=== PATIENT | male | born 1990 ===

== ENCOUNTER 2017-06-25 10:25 | Inpatient (IN) | payer SELFPAY ==
[2017-06-25 10:34] VITALS: BMI 19.1
--- NOTE | 2017-06-25 11:02 | C.PDOC ---
History Of Present Illness 26 year old male with no PMHx presents to the ER with a complaint of abdominal pain, nausea, weight loss, fatigue and body aches for the past 15 days, associated with pale stools. Notes his friends noticed his eyes yellow. Patient reports he recently came from [facility] 20 days ago. Denies fever, chest pain, sob, blood in stool, bruising, tylenol use, headache, or drug/ETOH abuse. Time Seen by Provider: 06/25/17 10:45 Chief Complaint (Nursing): Abdominal Pain History Per: Patient History/Exam Limitations: language barrier Onset/Duration Of Symptoms: Days Current Symptoms Are (Timing): Still Present Context: Travel (Recently came from [facility]) Location Of Pain/Discomfort: RUQ, LUQ Radiation Of Pain To:: None Quality Of Discomfort: Unable To Describe Associated Symptoms: Nausea, Other (Weight loss, body aches). denies: Fever, Diarrhea Exacerbating Factors: None Alleviating Factors: None Recent travel outside of the [place]: No Past Medical History Reviewed: Historical Data, Nursing Documentation, Vital Signs Vital Signs: Last Vital Signs Temp 98.7 F 06/25/17 12:00 Pulse 69 06/25/17 12:00 Resp 18 06/25/17 12:00 BP 120/70 06/25/17 12:00 Pulse Ox 97 06/25/17 17:29 - Medical History PMH: No Chronic Diseases Surgical History: No Surg Hx Family History: States: Unknown Family Hx - Social History Hx Alcohol Use: No Hx Substance Use: Yes - Immunization History Hx Tetanus Toxoid Vaccination: No Hx Influenza Vaccination: Yes (2017) Hx Pneumococcal Vaccination: No Review Of Systems Constitutional: Positive for: Weight loss. Negative for: Fever Gastrointestinal: Positive for: Nausea, Abdominal Pain, Other (Pale stools). Negative for: Diarrhea Musculoskeletal: Positive for: Other (Body aches) Neurological: Negative for: Headache Physical Exam - Physical Exam Appears: Non-toxic, No Acute Distress Skin: Warm, Dry, Jaundice Head: Atraumatic, Normacephalic Eye(s): bilateral: PERRL, EOMI, Scleral Icterus Nose: Normal Oral Mucosa: Moist Neck: Normal, Supple Chest: Symmetrical, No Tenderness Cardiovascular: Rhythm Regular Respiratory: Normal Breath Sounds, No Rales, No Rhonchi, No Wheezing Gastrointestinal/Abdominal: Soft, Tenderness (Upper quadrants), No Guarding, No Rebound Back: Normal Inspection Neurological/Psych: Oriented x3, Normal Speech, Other (No focal deficits) ED Course And Treatment - Laboratory Results Result Diagrams: 06/25/17 11:14 06/25/17 11:14 O2 Sat by Pulse Oximetry: 97 (Room air) Pulse Ox Interpretation: Normal - CT Scan/US Abdominal US Other Rad Studies (CT/US): Read By Radiologist, Radiology Report Reviewed CT/US Interpretation: HISTORY: pain. COMPARISON: None available. TECHNIQUE: Sonographic evaluation of the abdomen. FINDINGS: LIVER: Measures 15.1 cm in sagittal dimension and appears unremarkable. No focal hepatic mass identified. The main portal vein appears patent with normal directional flow. No intrahepatic bile duct dilatation. GALLBLADDER: Contracted gallbladder state limits evaluation. No gallstones. No gallbladder wall thickening. Negative sonographic Tay's sign as assessed by the sewing department supervisor. COMMON BILE DUCT: Measures 4 mm. PANCREAS: Not well visualized. RIGHT KIDNEY: Measures 10.6 x 4.3 x 4.8cm. No obstructing calculus or hydronephrosis identified. LEFT KIDNEY: Measures 10.9 x 6.3 x 6.0cm. No obstructing calculus or hydronephrosis identified. SPLEEN: Measures approximately 9.6 cm. AORTA: Limited views appear unremarkable. IVC: Limited views appear unremarkable. OTHER FINDINGS: None. IMPRESSION: Contracted gallbladder state limits evaluation. No acute findings identified. Progress Note: Blood work, urinalysis, and abdominal US ordered. Case discussed with hospitalist, agreed upon admission. Disposition - Disposition Disposition: HOSPITALIZED Disposition Time: 12:00 Condition: STABLE - Clinical Impression Clinical Impression: Hepatitis B, Jaundice, Abnormal LFTs, Abdominal pain - Scribe Statement The provider has reviewed the documentation as recorded by the Scribtabitha Beasley All medical record entries made by the Scribe were at my direction and personally dictated by me. I have reviewed the chart and agree that the record accurately reflects my personal performance of the history, physical exam, medical decision making, and the department course for this patient. I have also personally directed, reviewed, and agree with the discharge instructions and disposition.
[2017-06-25 11:18] LABS: BASO # 0.1 K/uL (0.0-0.2); BASO % 0.9 % (0.0-2.0); EOS # 0.4 K/uL (0.0-0.7); EOS % 4.4 % (0.0-4.0); HEMATOCRIT 44.5 % (35.0-51.0); LYMPH # 2.2 K/uL (1.0-4.3); LYMPH % 26.3 % (20.0-40.0); MEAN CELL VOLUME 93.6 fL (80.0-94.0); MEAN CORPUSCULAR HEMOGLOBIN 31.8 pg (27.0-31.0); MEAN CORPUSCULAR HGB CONC 33.9 g/dL (33.0-37.0); MEAN PLATELET VOLUME 8.4 fL (7.2-11.7); MONO # 1.5 K/uL (0.0-0.8); MONO % 17.7 % (0.0-10.0); NRBC % 0.1 % (0.0-2.0); RED CELL DISTRIBUTION WIDTH 13.9 % (11.5-14.5); WHITE BLOOD COUNT 8.5 K/uL (4.8-10.8)
[2017-06-25 11:25] LABS: RBC URINE 1 /hpf (0-3); URINE BILIRUBIN 2+ (NEGATIVE); URINE BLOOD NEGATIVE (NEGATIVE); URINE COLOR Amber (YELLOW); URINE GLUCOSE (UA) NORMAL (Normal); URINE KETONE NEGATIVE (NEGATIVE); URINE LEUKOCYTE ESTERASE NEG Leu/uL (Negative); URINE PROTEIN NEGATIVE (NEGATIVE); WBC URINE 3 /hpf (0-5)
[2017-06-25 11:36] LABS: ALCOHOL SERUM < 10 mg/dl (0-10); BILIRUBIN,TOTAL 14.1 mg/dL (0.2-1.3)
--- NOTE | 2017-06-25 11:50 | US ---
HISTORY: pain COMPARISON: None available TECHNIQUE: Sonographic evaluation of the abdomen. FINDINGS: LIVER: Measures 15.1 cm in sagittal dimension and appears unremarkable. No focal hepatic mass identified. The main portal vein appears patent with normal directional flow. No intrahepatic bile duct dilatation. GALLBLADDER: Contracted gallbladder state limits evaluation. No gallstones. No gallbladder wall thickening. Negative sonographic Tay's sign as assessed by the director of institutional giving. COMMON BILE DUCT: Measures 4 mm. PANCREAS: Not well visualized. RIGHT KIDNEY: Measures 10.6 x 4.3 x 4.8cm. No obstructing calculus or hydronephrosis identified. LEFT KIDNEY: Measures 10.9 x 6.3 x 6.0cm. No obstructing calculus or hydronephrosis identified. SPLEEN: Measures approximately 9.6 cm. AORTA: Limited views appear unremarkable. IVC: Limited views appear unremarkable. OTHER FINDINGS: None. IMPRESSION: Contracted gallbladder state limits evaluation. No acute findings identified.
[2017-06-25 11:54] LABS: ALB/GLOB RATIO 0.9 (1.0-2.1); ALKALINE PHOSPHATASE 215 U/L (38-126); BILIRUBIN,DIRECT 12.4 mg/dL (0.0-0.4); BILIRUBIN,TOTAL 14.3 mg/dL (0.2-1.3); BLOOD UREA NITROGEN 8 mg/dL (9-20); CALCIUM 8.2 mg/dl (8.6-10.4); CARBON DIOXIDE 26 mmol/L (22-30); CHLORIDE 99 mmol/L (98-107); GFR AFRICAN-AMERICAN > 60; GLUCOSE,RANDOM 84 mg/dL (75-110); SODIUM 133 mmol/L (132-148); TOTAL PROTEIN 7.7 g/dL (6.3-8.3)
[2017-06-25 12:01] LABS: AST/SGOT 2182 U/L (17-59)
[2017-06-25 12:03] LABS: ALT/SGPT 3913 U/L (21-72)
[2017-06-25] MEDS ORDERED: Iohexol 240 (50 ml) PO STA (13:20)
[2017-06-25] MEDS ORDERED: Iohexol 240 (50 ml) ONE (13:37)
[2017-06-25 13:58] LABS: HEP B SURFACE AG CONF CONFIRMED POSITIVE
--- NOTE | 2017-06-25 14:07 | CP.PCM.HP ---
<Berny Jerry - Last Filed: 06/25/17 18:27> Meds Allergies/Adverse Reactions: Allergies Allergy/AdvReac Type Severity Reaction Status Date / Time No Known Allergies Allergy Verified 06/25/17 10:33 Results - Vital Signs Recent Vital Signs: Last Vital Signs Temp 98.7 F 06/25/17 12:00 Pulse 69 06/25/17 12:00 Resp 18 06/25/17 12:00 BP 120/70 06/25/17 12:00 Pulse Ox 97 06/25/17 17:33 - Labs Result Diagrams: 06/25/17 11:14 06/25/17 11:14 Labs: Laboratory Results - last 24 hr 06/25/17 06/25/17 06/25/17 11:14 11:14 11:14 WBC 8.5 RBC 4.76 Hgb 15.1 Hct 44.5 MCV 93.6 MCH 31.8 H MCHC 33.9 RDW 13.9 Plt Count 254 MPV 8.4 Neut % (Auto) 50.7 Lymph % (Auto) 26.3 [place] % (Auto) 17.7 H Eos % (Auto) 4.4 H Baso % (Auto) 0.9 Neut # 4.3 Lymph # 2.2 [place] # 1.5 H Eos # 0.4 Baso # 0.1 PT INR APTT Sodium 133 Potassium 4.0 Chloride 99 Carbon Dioxide 26 Anion Gap 12 BUN 8 L Creatinine 0.5 L Est GFR ( Amer) > 60 Est GFR (Non-Af Amer) > 60 Random Glucose 84 Calcium 8.2 L Total Bilirubin 14.3 H Direct Bilirubin 12.4 H AST 2182 H ALT 3913 H Alkaline Phosphatase 215 H Total Protein 7.7 Albumin 3.7 Globulin 4.0 H Albumin/Globulin Ratio 0.9 L Lipase 152 Urine Color [place] Urine Clarity Clear Urine pH 6.0 Ur Specific [place] 1.018 Urine Protein Negative Urine Glucose (UA) Normal Urine Ketones Negative Urine Blood Negative Urine Nitrate Negative Urine Bilirubin 2+ H Urine Urobilinogen 4.0 Ur Leukocyte Esterase Neg Urine WBC (Auto) 3 Urine RBC (Auto) 1 Acetaminophen Alcohol, Quantitative Hepatitis A IgM Ab Hep Bs Antigen Hep Bs Ag Neutralizatn Hep B Core IgM Ab Hepatitis C Antibody 06/25/17 06/25/17 06/25/17 11:17 11:17 12:15 WBC RBC Hgb Hct MCV MCH MCHC RDW Plt Count MPV Neut % (Auto) Lymph % (Auto) [place] % (Auto) Eos % (Auto) Baso % (Auto) Neut # Lymph # [place] # Eos # Baso # PT INR APTT Sodium Potassium Chloride Carbon Dioxide Anion Gap BUN Creatinine Est GFR ( Amer) Est GFR (Non-Af Amer) Random Glucose Calcium Total Bilirubin 14.1 H Direct Bilirubin AST ALT Alkaline Phosphatase Total Protein Albumin Globulin Albumin/Globulin Ratio Lipase Urine Color Urine Clarity Urine pH Ur Specific [place] Urine Protein Urine Glucose (UA) Urine Ketones Urine Blood Urine Nitrate Urine Bilirubin Urine Urobilinogen Ur Leukocyte Esterase Urine WBC (Auto) Urine RBC (Auto) Acetaminophen < 10.0 L Alcohol, Quantitative < 10 Hepatitis A IgM Ab Negative Hep Bs Antigen Positive Hep Bs Ag Neutralizatn Confirmed positive H Hep B Core IgM Ab Reactive Hepatitis C Antibody Negative 06/25/17 15:23 WBC RBC Hgb Hct MCV MCH MCHC RDW Plt Count MPV Neut % (Auto) Lymph % (Auto) [place] % (Auto) Eos % (Auto) Baso % (Auto) Neut # Lymph # [place] # Eos # Baso # PT 14.3 H INR 1.3 APTT 31 Sodium Potassium Chloride Carbon Dioxide Anion Gap BUN Creatinine Est GFR ( Amer) Est GFR (Non-Af Amer) Random Glucose Calcium Total Bilirubin Direct Bilirubin AST ALT Alkaline Phosphatase Total Protein Albumin Globulin Albumin/Globulin Ratio Lipase Urine Color Urine Clarity Urine pH Ur Specific [place] Urine Protein Urine Glucose (UA) Urine Ketones Urine Blood Urine Nitrate Urine Bilirubin Urine Urobilinogen Ur Leukocyte Esterase Urine WBC (Auto) Urine RBC (Auto) Acetaminophen Alcohol, Quantitative Hepatitis A IgM Ab Hep Bs Antigen Hep Bs Ag Neutralizatn Hep B Core IgM Ab Hepatitis C Antibody Attending/Attestation - Attestation I have personally seen and examined this patient.: Yes I have fully participated in the care of the patient.: Yes I have reviewed all pertinent clinical information: Yes Notes (Text): patient was seen and examined.Got [employer] translation service.Patient was not feeling.He is complaining of abdominal pain for the past 15 days, back pain, and mild pruritus.He denies history of hepatitis,denies drug use,denies <Florecita Dimas - Last Filed: 06/25/17 19:20> History of Present Illness - History of Present Illness History of Present Illness: History and physical for Dr. Jerry Patient presents with abdominal pain for the past 15 days. Patient admits to abdominal pain, back pain, and mild pruritis. Patient admits to general sense of fatigue. Patient states this is the first time he's ever had this before. Patient's relative at bedside in emergency room states patient was born and had to stay in the hospital for five days for ultraviolet light treatment for jaundice. Patient has not had any symptoms of puritis, abdominal pain, nausea, diarrhea, constipation, numbness, tingling, chest pain, shortness of breath. PMH: none PSH: no surgeries Family history: no history of liver disease Social history: patient's last drink was 1 month ago 3 bottles of vodka with 6 friends. Patient is a never smoker, patient denies illicit drugs. Present on Admission - Present on Admission Any Indicators Present on Admission: No History of DVT/PE: No History of Uncontrolled Diabetes: No Urinary Catheter: No Decubitus Ulcer Present: No Past Patient History - Past Social History Smoking Status: Former Smoker - PSYCHIATRIC Hx Substance Use: Yes - SURGICAL HISTORY Hx Surgeries: No - ANESTHESIA Hx Anesthesia: No Physical Exam - Constitutional Appears: Non-toxic - Head Exam Head Exam: NORMAL INSPECTION - Eye Exam Eye Exam: EOMI, Scleral icterus - ENT Exam ENT Exam: Mucous Membranes Moist - Neck Exam Neck exam: Positive for: Full Rom - Respiratory Exam Respiratory Exam: Clear to Auscultation Bilateral. absent: Accessory Muscle Use - Cardiovascular Exam Cardiovascular Exam: REGULAR RHYTHM, +S1, +S2. absent: Bradycardia, Tachycardia - GI/Abdominal Exam GI & Abdominal Exam: Soft, Tenderness - Extremities Exam Extremities exam: Positive for: full ROM. Negative for: pedal edema - Neurological Exam Neurological exam: Alert, Normal Gait, Oriented x3 - Psychiatric Exam Psychiatric exam: Normal Affect, Normal Mood - Skin Skin Exam: Pallor Additional comments: jaundice Results - Vital Signs Recent Vital Signs: Last Vital Signs Temp 98.7 F 06/25/17 12:00 Pulse 69 06/25/17 12:00 Resp 18 06/25/17 12:00 BP 120/70 06/25/17 12:00 Pulse Ox 97 06/25/17 12:37 - Labs Result Diagrams: 06/25/17 11:14 06/25/17 11:14 Labs: Laboratory Results - last 24 hr 06/25/17 06/25/17 06/25/17 11:14 11:14 11:14 WBC 8.5 RBC 4.76 Hgb 15.1 Hct 44.5 MCV 93.6 MCH 31.8 H MCHC 33.9 RDW 13.9 Plt Count 254 MPV 8.4 Neut % (Auto) 50.7 Lymph % (Auto) 26.3 [place] % (Auto) 17.7 H Eos % (Auto) 4.4 H Baso % (Auto) 0.9 Neut # 4.3 Lymph # 2.2 [place] # 1.5 H Eos # 0.4 Baso # 0.1 Sodium 133 Potassium 4.0 Chloride 99 Carbon Dioxide 26 Anion Gap 12 BUN 8 L Creatinine 0.5 L Est GFR ( Amer) > 60 Est GFR (Non-Af Amer) > 60 Random Glucose 84 Calcium 8.2 L Total Bilirubin 14.3 H Direct Bilirubin 12.4 H AST 2182 H ALT 3913 H Alkaline Phosphatase 215 H Total Protein 7.7 Albumin 3.7 Globulin 4.0 H Albumin/Globulin Ratio 0.9 L Lipase 152 Urine Color [place] Urine Clarity Clear Urine pH 6.0 Ur Specific [place] 1.018 Urine Protein Negative Urine Glucose (UA) Normal Urine Ketones Negative Urine Blood Negative Urine Nitrate Negative Urine Bilirubin 2+ H Urine Urobilinogen 4.0 Ur Leukocyte Esterase Neg Urine WBC (Auto) 3 Urine RBC (Auto) 1 Acetaminophen Alcohol, Quantitative Hepatitis A IgM Ab Hep Bs Antigen Hep Bs Ag Neutralizatn Hep B Core IgM Ab Hepatitis C Antibody 06/25/17 06/25/17 06/25/17 11:17 11:17 12:15 WBC RBC Hgb Hct MCV MCH MCHC RDW Plt Count MPV Neut % (Auto) Lymph % (Auto) [place] % (Auto) Eos % (Auto) Baso % (Auto) Neut # Lymph # [place] # Eos # Baso # Sodium Potassium Chloride Carbon Dioxide Anion Gap BUN Creatinine Est GFR ( Amer) Est GFR (Non-Af Amer) Random Glucose Calcium Total Bilirubin 14.1 H Direct Bilirubin AST ALT Alkaline Phosphatase Total Protein Albumin Globulin Albumin/Globulin Ratio Lipase Urine Color Urine Clarity Urine pH Ur Specific [place] Urine Protein Urine Glucose (UA) Urine Ketones Urine Blood Urine Nitrate Urine Bilirubin Urine Urobilinogen Ur Leukocyte Esterase Urine WBC (Auto) Urine RBC (Auto) Acetaminophen < 10.0 L Alcohol, Quantitative < 10 Hepatitis A IgM Ab Negative Hep Bs Antigen Positive Hep Bs Ag Neutralizatn Confirmed positive H Hep B Core IgM Ab Reactive Hepatitis C Antibody Negative Assessment & Plan - Assessment and Plan (Free Text) Assessment: Hepatitis B positive, hyperbilirubinemia, elevated LFTs 06/25 Hep panel: Hep Bs Antigen positive, Hep Bs Ag Neutralization positive, Hep B Core IgM ab reactive 06/25 Abdominal US: negative for any calculus, portal vein patent, gallbladder is contracted, unable to view 06/25 CT Abdomen/Pelvis PO/IV contrast: monitor CMP Prophylaxis: Protonix 20mg QD SCDs pending coag panel, pharmacologic DVT prophylaxis contraindicated fluids: D5w 1/2 NS @80cc/hr Diet: NPO, except medications discussed with Dr. Claritza Dimas DO PGY1 - Date & Time Date: 06/25/17 Time: 14:05 Decision To Admit - Pt Status Changed To: Hospital Disposition Of: Inpatient - Admit Certification Admit to Inpatient:: After my assessment, the patient will require hospitalization for at least two midnights. This is because of the severity of symptoms shown, intensity of services needed, and/or the medical risk in this patient being treated as an outpatient. - InPatient: Physician Admission Certification:: Dr. Jerry - . Bed Request Type: Regular
[2017-06-25] MEDS: Dextrose 5%/0.45% NS 1,000 ML IV SCH (14:51)
--- NOTE | 2017-06-25 15:25 | CP.PCM.CON ---
History of Present Illness - History of Present Illness History of Present Illness: Consdult ordered for GI sserevice for hepatitis. Consult was noticed in computer. My service has not yet been called. Young ,male from [place]- came 3 weeks ago- reports 2 weeks of symptoms: RUQ abdom pain- mild to moderate, body aches, nausea, fever,wt loss., dark urine, yellow eyes , and light stool. Reports tattoos. Denies transfusions, Cp, SOB, meds, herbals, tylenol, alcohol, suplements, hematuria, hemoptuysis. Review of Systems - Constitutional Constitutional: Fatigue, Fever, Weight Loss, Weakness. absent: Chills, Lethargy , Night Sweats, Weight Gain - EENT Nose/Mouth/Throat: absent: Dry Mouth, Dysphagia - Cardiovascular Cardiovascular: absent: Chest Pain, Dyspnea - Respiratory Respiratory: absent: Cough, Hemoptysis, Wheezing - Gastrointestinal Gastrointestinal: Abdominal Pain, Nausea. absent: Diarrhea, Dysphagia, Hematemesis, Hematochezia, Melena, Odynophagia, Vomiting - Genitourinary Genitourinary: absent: Flank Pain, Hematuria - Musculoskeletal Musculoskeletal: Arthralgias, Muscle Cramps - Integumentary Integumentary: Pruritus, Jaundice. absent: Rash - Neurological Neurological: absent: Convulsions Past Patient History - Past Social History Smoking Status: Former Smoker - PSYCHIATRIC Hx Substance Use: Yes - SURGICAL HISTORY Hx Surgeries: No - ANESTHESIA Hx Anesthesia: No Meds Allergies/Adverse Reactions: Allergies Allergy/AdvReac Type Severity Reaction Status Date / Time No Known Allergies Allergy Verified 06/25/17 10:33 - Medications Medications: Current Medications Dextrose/Sodium Chloride (Dextrose 5%/0.45% Ns 1000 Ml) 1,000 mls @ 80 mls/hr IV .[id number] [facility] Last Admin: 06/25/17 14:51 Dose: 80 mls/hr Morphine Sulfate (Morphine) 2 mg IVP Q6H PRN PRN Reason: Pain, moderate (4-7) Pantoprazole Sodium (Protonix Inj) 40 mg IVP DAILY [facility] Physical Exam - Constitutional Appears: Well - Neck Exam Neck exam: Negative for: Tenderness - Respiratory Exam Respiratory Exam: Clear to Auscultation Bilateral - Cardiovascular Exam Cardiovascular Exam: RRR - GI/Abdominal Exam GI & Abdominal Exam: Normal Bowel Sounds, Soft, Tenderness. absent: Distended, Firm, Guarding, Mass, Rebound Additional comments: Mild RUQ tenderness. - Extremities Exam Extremities exam: Negative for: calf tenderness, pedal edema - Neurological Exam Neurological exam: Alert, Oriented x3 Additional comments: No asterixis - Skin Additional comments: + Tattoos Results - Vital Signs Recent Vital Signs: Last Vital Signs Temp 98.7 F 06/25/17 12:00 Pulse 69 06/25/17 12:00 Resp 18 06/25/17 12:00 BP 120/70 06/25/17 12:00 Pulse Ox 97 06/25/17 12:37 - Labs Result Diagrams: 06/25/17 11:14 06/25/17 11:14 Labs: Laboratory Results - last 24 hr 06/25/17 06/25/17 06/25/17 11:14 11:14 11:14 WBC 8.5 RBC 4.76 Hgb 15.1 Hct 44.5 MCV 93.6 MCH 31.8 H MCHC 33.9 RDW 13.9 Plt Count 254 MPV 8.4 Neut % (Auto) 50.7 Lymph % (Auto) 26.3 [place] % (Auto) 17.7 H Eos % (Auto) 4.4 H Baso % (Auto) 0.9 Neut # 4.3 Lymph # 2.2 [place] # 1.5 H Eos # 0.4 Baso # 0.1 Sodium 133 Potassium 4.0 Chloride 99 Carbon Dioxide 26 Anion Gap 12 BUN 8 L Creatinine 0.5 L Est GFR ( Amer) > 60 Est GFR (Non-Af Amer) > 60 Random Glucose 84 Calcium 8.2 L Total Bilirubin 14.3 H Direct Bilirubin 12.4 H AST 2182 H ALT 3913 H Alkaline Phosphatase 215 H Total Protein 7.7 Albumin 3.7 Globulin 4.0 H Albumin/Globulin Ratio 0.9 L Lipase 152 Urine Color [place] Urine Clarity Clear Urine pH 6.0 Ur Specific [place] 1.018 Urine Protein Negative Urine Glucose (UA) Normal Urine Ketones Negative Urine Blood Negative Urine Nitrate Negative Urine Bilirubin 2+ H Urine Urobilinogen 4.0 Ur Leukocyte Esterase Neg Urine WBC (Auto) 3 Urine RBC (Auto) 1 Acetaminophen Alcohol, Quantitative Hepatitis A IgM Ab Hep Bs Antigen Hep Bs Ag Neutralizatn Hep B Core IgM Ab Hepatitis C Antibody 06/25/17 06/25/17 06/25/17 11:17 11:17 12:15 WBC RBC Hgb Hct MCV MCH MCHC RDW Plt Count MPV Neut % (Auto) Lymph % (Auto) [place] % (Auto) Eos % (Auto) Baso % (Auto) Neut # Lymph # [place] # Eos # Baso # Sodium Potassium Chloride Carbon Dioxide Anion Gap BUN Creatinine Est GFR ( Amer) Est GFR (Non-Af Amer) Random Glucose Calcium Total Bilirubin 14.1 H Direct Bilirubin AST ALT Alkaline Phosphatase Total Protein Albumin Globulin Albumin/Globulin Ratio Lipase Urine Color Urine Clarity Urine pH Ur Specific [place] Urine Protein Urine Glucose (UA) Urine Ketones Urine Blood Urine Nitrate Urine Bilirubin Urine Urobilinogen Ur Leukocyte Esterase Urine WBC (Auto) Urine RBC (Auto) Acetaminophen < 10.0 L Alcohol, Quantitative < 10 Hepatitis A IgM Ab Negative Hep Bs Antigen Positive Hep Bs Ag Neutralizatn Confirmed positive H Hep B Core IgM Ab Reactive Hepatitis C Antibody Negative Assessment & Plan (1) Abdominal pain Assessment and Plan: Hepatitis. No GB disease Status: Acute (2) Jaundice Assessment and Plan: C/w acute hepatitis B. REC: Avoid hepatotoxic meds Follow LFTs Check and follow PT/ INR Check NH3 level. Advise contacts Status: Acute (3) Abnormal LFTs Status: Acute (4) Hepatitis B Status: Acute
[2017-06-25] MEDS ORDERED: Iodixanol 320 MG/ML 100 ML BOTTLE IV ONE (15:35)
[2017-06-25 15:36] LABS: INR 1.3
--- NOTE | 2017-06-25 17:13 | CT ---
PROCEDURE: CT Abdomen and Pelvis with oral and IV contrast. HISTORY: hyperbilirubinemia, elevated LFTS COMPARISON: Abdominal ultrasound performed 06/25/17. TECHNIQUE: Contiguous axial images of the abdomen and pelvis. Oral and IV contrast was administered. Coronal and Sagittal reformats generated and reviewed. Contrast dose: 100 mL Visipaque Radiation dose: Total exam DLP = 243.06 mGy-cm. This CT exam was performed using one or more of the following dose reduction techniques: Automated exposure control, adjustment of the mA and/or kV according to patient size, and/or use of iterative reconstruction technique. FINDINGS: LOWER THORAX: No visible consolidation, pleural effusion, or pneumothorax. LIVER: Unremarkable. GALLBLADDER AND BILE DUCTS: Gallbladder wall thickening/edema. PANCREAS: Unremarkable. SPLEEN: Unremarkable. ADRENALS: Unremarkable. KIDNEYS AND URETERS: The kidneys enhance symmetrically. No hydronephrosis or obstructing renal calculus. BLADDER: The urinary bladder appears unremarkable. REPRODUCTIVE: Unremarkable. APPENDIX: The appendix is not definitively identified. No secondary signs of acute appendicitis appreciated. BOWEL: The stomach is nondistended. The bowel loops appear within normal limits of caliber without evidence of intestinal obstruction. Small bowel wall thickening may be seen in the setting of enteritis. Correlate clinically. PERITONEUM: No significant free fluid. No definite free air. LYMPH NODES: No bulky lymphadenopathy identified. VASCULATURE: No aortic aneurysm. BONES: No acute osseous abnormality is detected. OTHER FINDINGS: None. IMPRESSION: Gallbladder wall thickening/edema. Recommend clinical correlation and right upper quadrant ultrasound for further evaluation if indicated. Small bowel wall thickening in the left upper quadrant may be seen in the setting of enteritis. Correlate clinically. Additional incidental findings as above.
--- NOTE | 2017-06-25 17:56 | CP.PCM.CON ---
History of Present Illness - History of Present Illness History of Present Illness: General Surgery- Dr. Mead 26M presents to [facility] ED w/ mid-epigastric and RUQ abdominal pain. Patient recently came from [place]. while he was abroad received UV therapy. currently denies fevers, chills, chest pain, shortness of breath, nausea, vomiting, diarrhea. Denies puritis, numbness and tingling in extremities. PMH: none PSH: denies ALL: NKDA Review of Systems - Review of Systems All systems: reviewed and no additional remarkable complaints except - Constitutional Constitutional: As Per HPI Past Patient History - Past Social History Smoking Status: Former Smoker - PSYCHIATRIC Hx Substance Use: Yes - SURGICAL HISTORY Hx Surgeries: No - ANESTHESIA Hx Anesthesia: No Meds Allergies/Adverse Reactions: Allergies Allergy/AdvReac Type Severity Reaction Status Date / Time No Known Allergies Allergy Verified 06/25/17 10:33 - Medications Medications: Current Medications Dextrose/Sodium Chloride (Dextrose 5%/0.45% Ns 1000 Ml) 1,000 mls @ 80 mls/hr IV .[id number] [facility] Last Admin: 06/25/17 14:51 Dose: 80 mls/hr Morphine Sulfate (Morphine) 2 mg IVP Q6H PRN PRN Reason: Pain, moderate (4-7) Pantoprazole Sodium (Protonix Inj) 40 mg IVP DAILY [facility] Physical Exam - Constitutional Appears: Non-toxic, No Acute Distress - Head Exam Head Exam: ATRAUMATIC - Eye Exam Eye Exam: EOMI, Scleral icterus Additional comments: sublingual jaundice - ENT Exam ENT Exam: Mucous Membranes Moist - Respiratory Exam Respiratory Exam: NORMAL BREATHING PATTERN. absent: Accessory Muscle Use, Respiratory Distress - Cardiovascular Exam Cardiovascular Exam: +S1, +S2. absent: Bradycardia, Tachycardia - GI/Abdominal Exam GI & Abdominal Exam: Soft, Tenderness. absent: Distended, Firm, Guarding, Hernia, Rigid Additional comments: tender to palpation in RUQ and mid-epigastrum - Extremities Exam Extremities exam: Positive for: normal inspection. Negative for: calf tenderness - Neurological Exam Neurological exam: Alert, Oriented x3 - Skin Skin Exam: Intact, Warm Additional comments: Jaundice Results - Vital Signs Recent Vital Signs: Last Vital Signs Temp 98.7 F 06/25/17 12:00 Pulse 69 06/25/17 12:00 Resp 18 06/25/17 12:00 BP 120/70 06/25/17 12:00 Pulse Ox 97 06/25/17 17:33 - Labs Result Diagrams: 06/25/17 11:14 06/25/17 11:14 Labs: Laboratory Results - last 24 hr 06/25/17 06/25/17 06/25/17 11:14 11:14 11:14 WBC 8.5 RBC 4.76 Hgb 15.1 Hct 44.5 MCV 93.6 MCH 31.8 H MCHC 33.9 RDW 13.9 Plt Count 254 MPV 8.4 Neut % (Auto) 50.7 Lymph % (Auto) 26.3 [place] % (Auto) 17.7 H Eos % (Auto) 4.4 H Baso % (Auto) 0.9 Neut # 4.3 Lymph # 2.2 [place] # 1.5 H Eos # 0.4 Baso # 0.1 PT INR APTT Sodium 133 Potassium 4.0 Chloride 99 Carbon Dioxide 26 Anion Gap 12 BUN 8 L Creatinine 0.5 L Est GFR ( Amer) > 60 Est GFR (Non-Af Amer) > 60 Random Glucose 84 Calcium 8.2 L Total Bilirubin 14.3 H Direct Bilirubin 12.4 H AST 2182 H ALT 3913 H Alkaline Phosphatase 215 H Total Protein 7.7 Albumin 3.7 Globulin 4.0 H Albumin/Globulin Ratio 0.9 L Lipase 152 Urine Color [place] Urine Clarity Clear Urine pH 6.0 Ur Specific [place] 1.018 Urine Protein Negative Urine Glucose (UA) Normal Urine Ketones Negative Urine Blood Negative Urine Nitrate Negative Urine Bilirubin 2+ H Urine Urobilinogen 4.0 Ur Leukocyte Esterase Neg Urine WBC (Auto) 3 Urine RBC (Auto) 1 Acetaminophen Alcohol, Quantitative Hepatitis A IgM Ab Hep Bs Antigen Hep Bs Ag Neutralizatn Hep B Core IgM Ab Hepatitis C Antibody 06/25/17 06/25/17 06/25/17 11:17 11:17 12:15 WBC RBC Hgb Hct MCV MCH MCHC RDW Plt Count MPV Neut % (Auto) Lymph % (Auto) [place] % (Auto) Eos % (Auto) Baso % (Auto) Neut # Lymph # [place] # Eos # Baso # PT INR APTT Sodium Potassium Chloride Carbon Dioxide Anion Gap BUN Creatinine Est GFR ( Amer) Est GFR (Non-Af Amer) Random Glucose Calcium Total Bilirubin 14.1 H Direct Bilirubin AST ALT Alkaline Phosphatase Total Protein Albumin Globulin Albumin/Globulin Ratio Lipase Urine Color Urine Clarity Urine pH Ur Specific [place] Urine Protein Urine Glucose (UA) Urine Ketones Urine Blood Urine Nitrate Urine Bilirubin Urine Urobilinogen Ur Leukocyte Esterase Urine WBC (Auto) Urine RBC (Auto) Acetaminophen < 10.0 L Alcohol, Quantitative < 10 Hepatitis A IgM Ab Negative Hep Bs Antigen Positive Hep Bs Ag Neutralizatn Confirmed positive H Hep B Core IgM Ab Reactive Hepatitis C Antibody Negative 06/25/17 15:23 WBC RBC Hgb Hct MCV MCH MCHC RDW Plt Count MPV Neut % (Auto) Lymph % (Auto) [place] % (Auto) Eos % (Auto) Baso % (Auto) Neut # Lymph # [place] # Eos # Baso # PT 14.3 H INR 1.3 APTT 31 Sodium Potassium Chloride Carbon Dioxide Anion Gap BUN Creatinine Est GFR ( Amer) Est GFR (Non-Af Amer) Random Glucose Calcium Total Bilirubin Direct Bilirubin AST ALT Alkaline Phosphatase Total Protein Albumin Globulin Albumin/Globulin Ratio Lipase Urine Color Urine Clarity Urine pH Ur Specific [place] Urine Protein Urine Glucose (UA) Urine Ketones Urine Blood Urine Nitrate Urine Bilirubin Urine Urobilinogen Ur Leukocyte Esterase Urine WBC (Auto) Urine RBC (Auto) Acetaminophen Alcohol, Quantitative Hepatitis A IgM Ab Hep Bs Antigen Hep Bs Ag Neutralizatn Hep B Core IgM Ab Hepatitis C Antibody Assessment & Plan - Assessment and Plan (Free Text) Assessment: 26M transaminitis, elevated bilirubin, Hep B serology positive Plan: - medical management for Acute hepatitis B - no surgical intervention at this time - please re-consult PRN; thank you for allowing us to provide care for this patient - discussed w/ Dr. Mead surgical attending Sancho Cormier PGY1
[2017-06-26 01:45] VITALS: RESP 20
[2017-06-26] MEDS: Dextrose 5%/0.45% NS 1,000 ML IV SCH ×3 (02:45→15:19)
[2017-06-26 07:31] LABS: BASO % 0.2 % (0.0-2.0); EOS % 0.1 % (0.0-4.0); HEMATOCRIT 42.5 % (35.0-51.0); LYMPH # 1.5 K/uL (1.0-4.3); LYMPH % 15.3 % (20.0-40.0); MEAN CELL VOLUME 94.6 fL (80.0-94.0); MEAN CORPUSCULAR HEMOGLOBIN 31.6 pg (27.0-31.0); MEAN CORPUSCULAR HGB CONC 33.5 g/dL (33.0-37.0); MEAN PLATELET VOLUME 8.8 fL (7.2-11.7); MONO # 1.3 K/uL (0.0-0.8); MONO % 13.6 % (0.0-10.0); NRBC % 0.1 % (0.0-2.0); RED CELL DISTRIBUTION WIDTH 14.4 % (11.5-14.5); WHITE BLOOD COUNT 9.9 K/uL (4.8-10.8)
[2017-06-26 08:10] LABS: ALB/GLOB RATIO 0.9 (1.0-2.1); ALKALINE PHOSPHATASE 155 U/L (38-126); BILIRUBIN,TOTAL 12.9 mg/dL (0.2-1.3); BLOOD UREA NITROGEN 5 mg/dL (9-20); CALCIUM 7.9 mg/dl (8.6-10.4); CARBON DIOXIDE 27 mmol/L (22-30); CHLORIDE 99 mmol/L (98-107); GFR AFRICAN-AMERICAN > 60; GLUCOSE,RANDOM 105 mg/dL (75-110); POTASSIUM 3.7 mmol/L (3.6-5.2); SODIUM 134 mmol/L (132-148); TOTAL PROTEIN 6.9 g/dL (6.3-8.3)
[2017-06-26 08:20] LABS: AST/SGOT 1243 U/L (17-59)
[2017-06-26 08:36] VITALS: BP 113/98; PULSE 55; TEMP 97.8; O2SAT 98
[2017-06-26 08:56] LABS: ALT/SGPT 3404 U/L (21-72)
--- NOTE | 2017-06-26 11:09 | CP.PCM.PN ---
Subjective - Date & Time of Evaluation Date of Evaluation: 06/26/17 Time of Evaluation: 11:05 - Subjective Subjective: COVERING DR MERCADO/BJORN No new c/o. Tolerating po diet LFT's appear to be trending down Objective - Vital Signs/Intake and Output Vital Signs (last 24 hours): Temp Pulse Resp BP Pulse Ox 97.8 F 55 L 20 113/98 H 98 06/26/17 08:38 06/26/17 08:38 06/26/17 08:38 06/26/17 08:38 06/26/17 08:38 Intake and Output: 06/26/17 06/26/17 06:59 18:59 Intake Total 1240 Balance 1240 - Medications Medications: Current Medications Dextrose/Sodium Chloride (Dextrose 5%/0.45% Ns 1000 Ml) 1,000 mls @ 80 mls/hr IV .[id number] [facility] Last Admin: 06/26/17 02:45 Dose: Not Given Morphine Sulfate (Morphine) 2 mg IVP Q6H PRN PRN Reason: Pain, moderate (4-7) Pantoprazole Sodium (Protonix Inj) 40 mg IVP DAILY [facility] Last Admin: 06/26/17 09:17 Dose: 40 mg Pneumococcal Polyvalent Vaccine (Pneumovax 23 Vaccine) 0.5 ml IM .ONCE ONE Stop: 06/28/17 10:01 - Labs Labs: 06/26/17 07:06 06/26/17 07:06 PT 14.3 SECONDS (9.7-12.2) H 06/25/17 15:23 INR 1.3 06/25/17 15:23 APTT 31 SECONDS (21-34) 06/25/17 15:23 - Constitutional Appears: No Acute Distress - Head Exam Head Exam: ATRAUMATIC, NORMOCEPHALIC - Eye Exam Eye Exam: EOMI, PERRL, Scleral icterus - Respiratory Exam Respiratory Exam: NORMAL BREATHING PATTERN - Cardiovascular Exam Cardiovascular Exam: REGULAR RHYTHM - GI/Abdominal Exam GI & Abdominal Exam: Soft, Normal Bowel Sounds. absent: Tenderness - Extremities Exam Extremities Exam: Normal Inspection Assessment and Plan (1) Acute hepatitis B Assessment & Plan: Patient in recovery phase of Acute Hep B, 90% likelihood of spontaneous clearance and immunity to follow. Repeat PT-INR Advance diet Testing and vaccination of contacts if needed Monitor LFTs and Hep B serologies to recovery which may be done as outpatient. No further intervention at this time. No current evidence to suggest fulminant hepatitis or impending liver failure. Discharge planning. Status: Acute (2) Abnormal transaminases Assessment & Plan: as above Status: Acute
--- NOTE | 2017-06-26 14:51 | CP.PCM.PN ---
Subjective - Date & Time of Evaluation Date of Evaluation: 06/26/17 Time of Evaluation: 12:00 Objective - Vital Signs/Intake and Output Vital Signs (last 24 hours): Temp Pulse Resp BP Pulse Ox 97.8 F 55 L 20 113/98 H 98 06/26/17 08:38 06/26/17 08:38 06/26/17 08:38 06/26/17 08:38 06/26/17 08:38 Intake and Output: 06/26/17 06/26/17 06:59 18:59 Intake Total 1240 Balance 1240 - Medications Medications: Current Medications Dextrose/Sodium Chloride (Dextrose 5%/0.45% Ns 1000 Ml) 1,000 mls @ 80 mls/hr IV .[id number] [facility] Last Admin: 06/26/17 13:38 Dose: 80 mls/hr Morphine Sulfate (Morphine) 2 mg IVP Q6H PRN PRN Reason: Pain, moderate (4-7) Pantoprazole Sodium (Protonix Inj) 40 mg IVP DAILY [facility] Last Admin: 06/26/17 09:17 Dose: 40 mg Pneumococcal Polyvalent Vaccine (Pneumovax 23 Vaccine) 0.5 ml IM .ONCE ONE Stop: 06/28/17 10:01 - Labs Labs: 06/26/17 07:06 06/26/17 07:06 PT 14.3 SECONDS (9.7-12.2) H 06/25/17 15:23 INR 1.3 06/25/17 15:23 APTT 31 SECONDS (21-34) 06/25/17 15:23
--- NOTE | 2017-06-26 14:53 | CP.PCM.DIS ---
Provider - Provider Date of Admission: 06/25/17 12:20 Attending physician: Berny Jerry MD Consults: GI: Dr. Key Surgery: Dr. Mead Time Spent in preparation of Discharge (in minutes): 45 Hospital Course - Lab Results Lab Results: Most Recent Lab Values WBC 9.9 K/uL (4.8-10.8) 06/26/17 07:06 RBC 4.49 Mil/uL (4.40-5.90) 06/26/17 07:06 Hgb 14.2 g/dL (12.0-18.0) 06/26/17 07:06 Hct 42.5 % (35.0-51.0) 06/26/17 07:06 MCV 94.6 fL (80.0-94.0) H 06/26/17 07:06 MCH 31.6 pg (27.0-31.0) H 06/26/17 07:06 MCHC 33.5 g/dL (33.0-37.0) 06/26/17 07:06 RDW 14.4 % (11.5-14.5) 06/26/17 07:06 Plt Count 262 K/uL (130-400) 06/26/17 07:06 MPV 8.8 fL (7.2-11.7) 06/26/17 07:06 Neut % (Auto) 70.8 % (50.0-75.0) 06/26/17 07:06 Lymph % (Auto) 15.3 % (20.0-40.0) L 06/26/17 07:06 [place] % (Auto) 13.6 % (0.0-10.0) H 06/26/17 07:06 Eos % (Auto) 0.1 % (0.0-4.0) 06/26/17 07:06 Baso % (Auto) 0.2 % (0.0-2.0) 06/26/17 07:06 Neut # 7.0 K/uL (1.8-7.0) 06/26/17 07:06 Lymph # 1.5 K/uL (1.0-4.3) 06/26/17 07:06 [place] # 1.3 K/uL (0.0-0.8) H 06/26/17 07:06 Eos # 0.0 K/uL (0.0-0.7) 06/26/17 07:06 Baso # 0.0 K/uL (0.0-0.2) 06/26/17 07:06 PT 14.3 SECONDS (9.7-12.2) H 06/25/17 15:23 INR 1.3 06/25/17 15:23 APTT 31 SECONDS (21-34) 06/25/17 15:23 Sodium 134 mmol/L (132-148) 06/26/17 07:06 Potassium 3.7 mmol/L (3.6-5.2) 06/26/17 07:06 Chloride 99 mmol/L (98-107) 06/26/17 07:06 Carbon Dioxide 27 mmol/L (22-30) 06/26/17 07:06 Anion Gap 12 (10-20) 06/26/17 07:06 BUN 5 mg/dL (9-20) L 06/26/17 07:06 Creatinine 0.5 mg/dL (0.8-1.5) L 06/26/17 07:06 Est GFR ( Amer) > 60 06/26/17 07:06 Est GFR (Non-Af Amer) > 60 06/26/17 07:06 Random Glucose 105 mg/dL (75-110) 06/26/17 07:06 Calcium 7.9 mg/dl (8.6-10.4) L 06/26/17 07:06 Total Bilirubin 12.9 mg/dL (0.2-1.3) H 06/26/17 07:06 Direct Bilirubin 12.4 mg/dL (0.0-0.4) H 06/25/17 11:14 AST 1243 U/L (17-59) H 06/26/17 07:06 ALT 3404 U/L (21-72) H 06/26/17 07:06 Alkaline Phosphatase 155 U/L (38-126) H D 06/26/17 07:06 Ammonia 27 umol/L (9-33) 06/26/17 10:33 Total Protein 6.9 g/dL (6.3-8.3) 06/26/17 07:06 Albumin 3.4 g/dL (3.5-5.0) L 06/26/17 07:06 Globulin 3.6 gm/dL (2.2-3.9) 06/26/17 07:06 Albumin/Globulin Ratio 0.9 (1.0-2.1) L 06/26/17 07:06 Lipase 152 U/L (23-300) 06/25/17 11:14 Urine Color [place] (YELLOW) 06/25/17 11:14 Urine Clarity Clear (Clear) 06/25/17 11:14 Urine pH 6.0 (5.0-8.0) 06/25/17 11:14 Ur Specific [place] 1.018 (1.003-1.030) 06/25/17 11:14 Urine Protein Negative mg/dL (NEGATIVE) 06/25/17 11:14 Urine Glucose (UA) Normal mg/dL (Normal) 06/25/17 11:14 Urine Ketones Negative mg/dL (NEGATIVE) 06/25/17 11:14 Urine Blood Negative (NEGATIVE) 06/25/17 11:14 Urine Nitrate Negative (NEGATIVE) 06/25/17 11:14 Urine Bilirubin 2+ (NEGATIVE) H 06/25/17 11:14 Urine Urobilinogen 4.0 mg/dL (0.2-1.0) 06/25/17 11:14 Ur Leukocyte Esterase Neg [place]/uL (Negative) 06/25/17 11:14 Urine WBC (Auto) 3 /hpf (0-5) 06/25/17 11:14 Urine RBC (Auto) 1 /hpf (0-3) 06/25/17 11:14 Acetaminophen < 10.0 ug/mL (10.0-30.0) L 06/25/17 12:15 Alcohol, Quantitative < 10 mg/dl (0-10) 06/25/17 11:17 Hepatitis A IgM Ab Negative (NEGATIVE) 06/25/17 11:17 Hep Bs Antigen Positive (NEGATIVE) 06/25/17 11:17 Hep Bs Ag Neutralizatn Confirmed positive H 06/25/17 11:17 Hep B Core IgM Ab Reactive (NEGATIVE) 06/25/17 11:17 Hepatitis C Antibody Negative (NEGATIVE) 06/25/17 11:17 - Hospital Course Hospital Course: CC: abdominal pain, nausea HPI: Patient presents with abdominal pain for the past 15 days. Patient admits to abdominal pain, back pain, and mild pruritus. Patient admits to general sense of fatigue. Patient states this is the first time he's ever had this before. Patient's relative at bedside in emergency room states patient was born and had to stay in the hospital for five days for ultraviolet light treatment for jaundice. Patient has not had any symptoms of pruritus, abdominal pain, nausea, diarrhea, constipation, numbness, tingling, chest pain, shortness of breath. PMH: none PSH: no surgeries Family history: no history of liver disease Social history: patient's last drink was 1 month ago 3 bottles of vodka with 6 friends. Patient is a never smoker, patient denies illicit drugs. Hospital course: Patient was admitted on 06/25/17 for hyperbilirubinemia and transaminitis. In the ED, labs were drawn and abdominal ultrasound was ordered. Patient was found to have elevated liver enzymes, hepatitis B, urinalysis was positive for bilirubin, negative acetaminophen and alcohol toxicity. The hepatitis panel showed positive for Hep BsAg, Hep BsAg neutralization, reactive Hep B core IgM Ab. Patient was negative for hepatitis A and C. The abdominal ultrasound showed contracted gallbladder state limits evaluation; no acute findings identified. Abdomen/pelvic CT was ordered and showed gallbladder wall thickening/edema; small bowel wall thickening in LUQ. IV fluids were started and patient was admitted for LFT monitoring. GI (Dr. Key), was consulted and recommended avoiding hepatotoxic medications, monitor LFTs, PT/INR, ammonia levels and for the patient to discuss with contacts. Surgery, Dr. Mead, was consulted for the patients abdominal pain- no surgical intervention needed at that time. Repeat labs from morning of 06/26/17, showed elevated transaminases were improving, ammonia level was within normal limits. Patient was seen by GI today, 06/26/17, who recommended patient follow up as outpatient to monitor LFTs and Hep B serologies as well as testing/vaccinations of contacts. Patient was seen and examined at bedside with stepfather present. Patient was in no acute distress and reported feeling better today. He states he had one episode of diarrhea this morning. Patient denied having abdominal pain, nausea, vomiting , chest pain, shortness of breath, and headaches. Patient is stable for discharge to home. Patient status and importance of following up as outpatient was discussed at length with the patient. Patient understands and agrees he will follow up as outpatient for LFTs and Hep B serology monitoring, as well as notifying possible contacts. This is a brief summary of the hospital course. Please see EMR for more details. Discharge Exam - Head Exam Head Exam: ATRAUMATIC, NORMOCEPHALIC - Eye Exam Eye Exam: EOMI, Scleral icterus - ENT Exam ENT Exam: Mucous Membranes Moist - Respiratory Exam Respiratory Exam: Clear to PA & Lateral, NORMAL BREATHING PATTERN, UNREMARKABLE. absent: Rales, Rhonchi, Wheezes, Respiratory Distress - Cardiovascular Exam Cardiovascular Exam: REGULAR RHYTHM, +S1, +S2 - GI/Abdominal Exam GI & Abdominal Exam: Normal Bowel Sounds, Soft. absent: Distended, Firm, Tenderness - Extremities Exam Extremities exam: normal inspection - Neurological Exam Neurological exam: Alert, Oriented x3 - Psychiatric Exam Psychiatric exam: Normal Affect - Skin Skin Exam: Dry, Intact, Warm Additional comments: Jaundice Discharge Plan - Follow Up Plan Condition: STABLE Disposition: HOME/ ROUTINE Additional Instructions: Patient is stable for discharge to home. Patient must [facility] up with [facility] in [facility] within one week of discharge for outpatient care. Patient should avoid Tylenol and herbal medications. Patient status and importance of following up as outpatient was discussed at length with the patient. Patient understands and agrees he will follow up as outpatient for LFTs and Hep B serology monitoring, as well as notifying possible contacts. If symptoms reoccur or worsening, patient should return to the ED.
[2017-06-26] MEDS ORDERED: Influenza Vaccine 60 mcg/0.5 mL SYR (4YR UP) IM ONE (15:00)
[2017-06-26] MEDS ORDERED: Pneumococcal 23-Valent Vaccine IM ONE (15:00)
== END 2017-06-26 20:00 | disposition home or self-care (01) | DRG 443 ==
LOC: C.ER 10:25 → C.9E 12:20 → C.3T 19:10
PROVIDERS: ADMIT Internal Medicine; ATTEND Internal Medicine
DX: B16.9 Acute hepatitis B without delta-agent and without hepatic coma (principal); L29.9 Pruritus, unspecified; Z87.891 Personal history of nicotine dependence